=== PATIENT | male | born 1995 | race Caucasian/White ===

== ENCOUNTER 2018-02-07 12:30 | Emergency (ER) | payer MEDICAID ==
--- NOTE | 2018-02-07 13:37 | ED Physician Documentation ---
PD HPI HEAD INJURY - Stated complaint Stated Complaint: HEAD LAC - Chief complaint Chief Complaint: Laceration - History obtained from History obtained from: Patient - History of Present Illness Mechanism of head injury: Blow (struck head on board, with lac to top of head. No LOC nor confusion. Feels slightly off balance for few minutes.) Timing - onset: Today Location of injury: Front, Top Quality of pain: Pain Associated symptoms: No: LOC, AMS (felt dazed for few seconds and still has feeling of slight lightheaded at times. Pain only local at the laceration. no diffuse headache.), Nausea / vomiting Symptoms worsen with: Palpation Review of Systems Constitutional: denies: Fever Eyes: denies: Loss of vision, Decreased vision Nose: denies: Rhinorrhea / runny nose, Congestion Throat: denies: Sore throat Respiratory: denies: Cough GI: denies: Vomiting, Diarrhea Musculoskeletal: denies: Neck pain, Back pain PD PAST MEDICAL HISTORY - Past Medical History Past Medical History: No Neuro: None Musculoskeletal: Chronic back pain - Past Surgical History Past Surgical History: No - Present Medications Home Medications: Ambulatory Orders Medication Instructions Recorded Confirmed No Known Home Medications [No 02/07/18 02/07/18 Known Home Medications] - Allergies Allergies/Adverse Reactions: Allergies Allergy/AdvReac Type Severity Reaction Status Date / Time No Known Drug Allergies Allergy Verified 02/07/18 12:58 - Social History Does the pt smoke?: Yes Smoking Status: Current every day smoker Does the pt drink ETOH?: No Does the pt have substance abuse?: No Substance Use and Type: Marijuana - Immunizations Immunizations are current?: Yes PD ED PE NORMAL - Vitals Vital signs reviewed: Yes - General General: Alert and oriented X 3, No acute distress, Well developed/nourished - HEENT HEENT: PERRL, EOMI, Other (frontal scalp with 1.5 cm laceration with slight bleeding. No FB. Tender locally. No depression. ) - Neck Neck: Supple, no meningeal sign, No bony TTP - Derm Derm: Normal color, Warm and dry - Neuro Neuro: Alert and oriented X 3, it solutions architect 2-12 intact, No motor deficit, No sensory deficit, Normal speech Eye Opening: Spontaneous Motor: Obeys Commands Verbal: Oriented GCS Score: 15 - Psych Psych: Normal mood, Normal affect Results - Vitals Vitals: Vital Signs - 24 hr 02/07/18 02/07/18 12:53 14:19 Temperature 36.4 C L 36.4 C L Heart Rate 60 68 Respiratory 18 17 Rate Blood Pressure 140/89 H 146/95 H O2 Saturation 100 100 Oxygen O2 Source Room air Procedures - Laceration (location) frontal scalp Length in cm: 1.5 Wound type: Linear, Into subcut fat, Clean Anesthesia: Lidocaine 2% Wound Preparation: Other (clenased with tap water) Skin layer closure: [place] Other: Patient tolerated well (with just slight vasovagal pallor during the stapling sitting up, but improved with lying him flatter for a minute.), Tetanus UTD Complexity: Simple PD MEDICAL DECISION MAKING - ED course Complexity details: considered differential (does not seem concussive symptoms enough to suggest need for imaging per standard recommnedations.), d/w patient - Sepsis Event Vital Signs: Vital Signs - 24 hr 02/07/18 02/07/18 12:53 14:19 Temperature 36.4 C L 36.4 C L Heart Rate 60 68 Respiratory 18 17 Rate Blood Pressure 140/89 H 146/95 H O2 Saturation 100 100 Oxygen O2 Source Room air Departure - Departure Disposition: 01 Home, Self Care Clinical Impression: Scalp laceration Qualifiers: Encounter type: initial encounter Qualified Code(s): S01.01XA - Laceration without foreign body of scalp, initial encounter Condition: Stable Record reviewed to determine appropriate education?: Yes Instructions: ED Laceration Scalp Stitch Or Stap Comments: It is okay to wash and shower. Clean off the wound twice a day with soap and water, or peroxide and water. Apply some antibiotic ointment to it to keep it moist. Also to watch for signs of infection such as purulence, redness or increasing pain. Return to your primary care or the ER at the specified time for staple removal. Tylenol or ibuprofen if needed for pains. Staple removal 8 -10 days. Discharge Date/Time: 02/07/18 14:19
[2018-02-07] MEDS ORDERED: IBUPROFEN 600 MG TABLET PO STA (14:03)
[2018-02-07 14:20] VITALS: BP 146/95
[2018-02-07] MEDS ORDERED: BACITRACIN OINT TOP ONE (14:21)
== END 2018-02-07 14:19 | disposition home or self-care (01) ==
LOC: ED 12:30
DX: S01.01XA Laceration without foreign body of scalp, initial encounter (principal); W22.8XXA Striking against or struck by other objects, initial encounter
CPT/HCPCS: 12001; 99282; 99283; A9270

== ENCOUNTER 2018-02-19 15:57 | Emergency (ER) | payer MEDICAID ==
[2018-02-19 16:05] VITALS: BP 120/68
--- NOTE | 2018-02-19 17:00 | ED Physician Documentation ---
PD HPI WOUND RECHECK - Stated complaint Stated Complaint: STAPLE REMOVAL - Chief complaint Chief Complaint: Laceration - Histroy obtained from History obtained from: Patient - History of Present Illness Location: Scalp Recently seen: Emergency Dept (10 days ago.) - Additional information Additional information: The patient is a 23-year-old male who presents for removal of keith from a scalp wound was repaired here 10 days ago. He denies any complications. Review of Systems Constitutional: denies: Fever Neurologic: denies: Headache PD PAST MEDICAL HISTORY - Past Medical History Neuro: None Musculoskeletal: Chronic back pain - Past Surgical History Past Surgical History: No - Present Medications Home Medications: Ambulatory Orders Medication Instructions Recorded Confirmed No Known Home Medications [No 02/07/18 02/07/18 Known Home Medications] - Allergies Allergies/Adverse Reactions: Allergies Allergy/AdvReac Type Severity Reaction Status Date / Time No Known Drug Allergies Allergy Verified 02/19/18 16:01 - Social History Does the pt smoke?: Yes Smoking Status: Current every day smoker Does the pt drink ETOH?: No Does the pt have substance abuse?: No - Immunizations Immunizations are current?: Yes PD ED PE NORMAL - Vitals Vital signs reviewed: Yes (normal) - General General: Alert and oriented X 3, Well developed/nourished - HEENT HEENT: Other (Scalp wound appears to be healing well, with no erythema or tenderness to palpation. [place] are intact.) - Respiratory Respiratory: No respiratory distress - Derm Derm: No rash - Neuro Neuro: Alert and oriented X 3, Normal speech Results - Vitals Vitals: Oxygen O2 Source Room air Procedures - Suture/staple Removal (location) scalp Suture/staple removal: # keith (6), Other (Patient experienced a brief vasovagal episode while sitting in the chair getting the keith removed. He recovered immediately after being laid supine.) PD MEDICAL DECISION MAKING - ED course Complexity details: considered differential, d/w patient ED course: The patient presented for removal of keith that had been placed here 10 days ago. Staple removal was performed without difficulty. However during the seizure the patient developed a vasovagal episode, from which she recovered immediately upon being laid supine. - Sepsis Event Vital Signs: Oxygen O2 Source Room air Departure - Departure Disposition: Home, Self Care Clinical Impression: Removal of keith Condition: Stable Instructions: ED Stap Removal No Complication Comments: Drink plenty of fluids. You can shower and shampoo. Follow-up with primary physician, or return to the emergency department if any sign of infection, or otherwise worsening symptoms. Discharge Date/Time: 02/19/18 17:08
== END 2018-02-19 17:08 | disposition home or self-care (01) ==
LOC: ED 15:57
DX: Z48.02 Encounter for removal of sutures (principal)
CPT/HCPCS: 99283

== ENCOUNTER 2018-09-29 09:09 | Emergency (ER) | payer MEDICAID ==
[2018-09-29 09:17] VITALS: BP 139/91
[2018-09-29] MEDS ORDERED: BUFFERED LIDOCAINE 10 ML SYRINGE SUBQ STA (09:28)
--- NOTE | 2018-09-29 09:28 | ED Physician Documentation ---
PD HPI HEAD INJURY - Stated complaint Stated Complaint: HEAD LAC - Chief complaint Chief Complaint: Laceration - Additional information Additional information: 23-year-old male presents the emergency department with a laceration on his scalp which occurred just prior to arrival. The patient denies any loss of consciousness. The patient denies any significant headache, nausea or neck pain or torso trauma. The patient reports being up-to-date on his tetanus. No other associated injuries or complaints. Symptoms are described as mild. Review of Systems Constitutional: denies: Fever, Chills Eyes: denies: Discharge Ears: denies: Ear pain Nose: denies: Congestion Throat: denies: Sore throat GI: denies: Abdominal Pain Skin: reports: Laceration (s) Musculoskeletal: denies: Neck pain Neurologic: reports: Head injury PD PAST MEDICAL HISTORY - Past Medical History Neuro: None Musculoskeletal: Chronic back pain - Past Surgical History Past Surgical History: No - Present Medications Home Medications: Ambulatory Orders Medication Instructions Recorded Confirmed No Known Home Medications 02/07/18 09/29/18 - Allergies Allergies/Adverse Reactions: Allergies Allergy/AdvReac Type Severity Reaction Status Date / Time No Known Drug Allergies Allergy Verified 09/29/18 09:17 - Social History Does the pt smoke?: Yes Smoking Status: Current every day smoker Does the pt drink ETOH?: No Does the pt have substance abuse?: No - Immunizations Immunizations are current?: Yes - POLST Patient has POLST: No PD ED PE NORMAL - HEENT HEENT: PERRL, EOMI, Ears normal, Moist mucous membranes, Pharynx benign - Neck Neck: No bony TTP - Derm Derm: Normal color - Extremities Extremities: No deformity, No tenderness to palpate - Neuro Neuro: Alert and oriented X 3, Normal speech - Psych Psych: Normal affect PD ED PE EXPANDED - HEENT HEENT Visual: 1 - laceration (1.5 cm laceration) 2 - tenderness (Tenderness palpation of the face, no crepitus, no deformity, no significant swelling) Results - Vitals Vitals: Vital Signs - 24 hr 09/29/18 09:15 Temperature 36.3 C L Heart Rate 104 H Respiratory 14 Rate Blood Pressure 139/91 H O2 Saturation 99 Oxygen O2 Source Room air - Rads (name of study) XR facial bones Radiology: Final report received, See rad report Procedures - Laceration (location) Scalp Length in cm: 1.5 Wound type: Linear Anesthesia: Lidocaine 1% Wound Preparation: Betadine, Irrigated copiously NS Skin layer closure: Nylon, Size #-0 - enter number (5) Other: Patient tolerated well, No complications, Tetanus UTD PD MEDICAL DECISION MAKING - ED course ED course: No hard signs of skull fracture or intracranial hemorrhage, no CT is warranted at this time. The laceration was closed. The patient was complaining of facial pain and there is no evidence of a facial fracture. Presently, the patient vincent ears appropriate for discharge and follow-up as an outpatient. I discussed warning signs and recommended returning for any worsening or any concerns Departure - Departure Disposition: 01 Home, Self Care Clinical Impression: Laceration of scalp Qualifiers: Encounter type: initial encounter Qualified Code(s): S01.01XA - Laceration without foreign body of scalp, initial encounter Facial contusion Qualifiers: Encounter type: initial encounter Qualified Code(s): S00.83XA - Contusion of other part of head, initial encounter Instructions: ED Head Injury Closed, ED Laceration All Comments: Please have your sutures removed in 5-7 days Please return to the emergency department for any worsening or any concerns Discharge Date/Time: 09/29/18 12:15
--- NOTE | 2018-09-29 11:07 | XRAY Report ---
Reason: Tenderness over the zygomatic arch Procedure Date: 09/29/2018 Accession Number: [id number] / [id number] Procedure: XR - Facial Bones Complete CPT Code: FULL RESULT: EXAM: FACIAL BONES RADIOGRAPHY EXAM DATE: 09/29/2018 10:55 AM. CLINICAL HISTORY: Tenderness over the zygomatic arch. COMPARISON: None. TECHNIQUE: 3 views. FINDINGS: Bones: Normal bone mineralization. No fractures or bone lesions. Temporomandibular Joints: Normal. Sinuses: Normal. No opacities or fluid levels. Other: No appreciable soft tissue swelling. IMPRESSION: Normal facial bones radiography. [facility]
== END 2018-09-29 12:15 | disposition home or self-care (01) ==
LOC: ED 09:09
DX: S01.01XA Laceration without foreign body of scalp, initial encounter (principal); W22.09XA Striking against other stationary object, initial encounter; F17.200 Nicotine dependence, unspecified, uncomplicated
CPT/HCPCS: 12001; 70150; 99282; 99283

== ENCOUNTER 2018-10-06 10:40 | Emergency (ER) | payer MEDICAID ==
[2018-10-06 10:53] VITALS: BP 125/74
--- NOTE | 2018-10-06 12:08 | ED Physician Documentation ---
History of Present Illness - Stated complaint Stated Complaint: SUTURE REMOVAL - Chief complaint Chief Complaint: General - History obtained from History obtained from: Patient - History of Present Illness Timing: Other (9 days out from a forehead suture placement, here for removal, he has no specific complaints otherwise and notes no complications, redness, swelling or, or drainage.) Review of Systems Constitutional: reports: Reviewed and negative Throat: reports: Reviewed and negative Cardiac: reports: Reviewed and negative PD PAST MEDICAL HISTORY - Past Medical History Neuro: None Musculoskeletal: Chronic back pain - Past Surgical History Past Surgical History: No - Present Medications Home Medications: Ambulatory Orders Medication Instructions Recorded Confirmed No Known Home Medications 02/07/18 09/29/18 - Allergies Allergies/Adverse Reactions: Allergies Allergy/AdvReac Type Severity Reaction Status Date / Time No Known Drug Allergies Allergy Verified 10/06/18 10:53 - Social History Does the pt smoke?: Yes Smoking Status: Current every day smoker Does the pt drink ETOH?: No Does the pt have substance abuse?: No - Immunizations Immunizations are current?: Yes - POLST Patient has POLST: No PD ED PE NORMAL - Vitals Vital signs reviewed: Yes - General General: Alert and oriented X 3, No acute distress - HEENT HEENT: PERRL, EOMI, Other (There is a healing laceration on the right forehead. On my evaluation the nurse had already removed the sutures.) - Neck Neck: Supple, no meningeal sign, No bony TTP - Derm Derm: No rash - Neuro Neuro: Alert and oriented X 3, Normal speech Results - Vitals Vitals: Vital Signs - 24 hr 10/06/18 10:50 Temperature 36.7 C Heart Rate 75 Respiratory 16 Rate Blood Pressure 125/74 O2 Saturation 99 Oxygen O2 Source Room air Departure - Departure Disposition: Home, Self Care Clinical Impression: Visit for suture removal Condition: Good Record reviewed to determine appropriate education?: Yes Instructions: ED Wound Check Sutr Remove No Infec
== END 2018-10-06 12:14 | disposition home or self-care (01) ==
LOC: ED 10:40
DX: S01.81XD Laceration without foreign body of other part of head, subsequent encounter (principal); F17.200 Nicotine dependence, unspecified, uncomplicated
CPT/HCPCS: 99283